=== PATIENT | male | born 1980 | race African-American/Black ===

== ENCOUNTER 2016-09-08 23:21 | Emergency (ER) | payer SELFPAY ==
[~2016-09-08] VITALS: Ht 190.5 cm; Wt 109.1 kg
[2016-09-08] MEDS ORDERED: ALBU0.212 IH (23:26)
[2016-09-08] MEDS ORDERED: ALBUTEROL SULFATE HFA 90 MCG/PUFF 8 GM INHALER IH ONE (23:45)
[2016-09-08] MEDS ORDERED: PredniSONE 20 MG TABLET PO ONE (23:45)
[2016-09-09 00:58] VITALS: BP 141/75
== END 2016-09-09 01:00 | disposition home or self-care (01) ==
LOC: EMS 23:23
DX: J45.901 Unspecified asthma with (acute) exacerbation (principal)
CPT/HCPCS: 94640; 99283; J7512; J3535